=== PATIENT | male | born 1950 | race Caucasian/White ===

== ENCOUNTER 2021-08-14 12:13 | Emergency (ER) | payer MEDICARE, OTHER ==
--- NOTE | 2021-08-14 12:51 | EDM.PDOC ---
ED [facility] GENERAL MEDICAL PROBLEM - General Chief Complaint: Respiratory Problem Stated Complaint: SOB Time Seen by Provider: 08/14/21 12:43 Source of Information: Reports: Patient History Limitations: Reports: No Limitations - History of Present Illness INITIAL COMMENTS - FREE TEXT/NARRATIVE: Patient is a 70-year-old male with a history of obesity presenting with a chief complaint of shortness of breath. Patient states he is been feeling sick for the past 3 weeks. He reports cough, congestion. He is slowly developed shortness of breath over this period of time. Shortness of breath is with exertion and at rest. Does not have any associated chest pain with this. Otherwise, he feels well. He denies any sore throat, vomiting, diarrhea, muscle aches, joint pains. States he otherwise has not had any issues with CHF or COPD. Patient denies smoking. Does not have any sick contacts. - Related Data Allergies Allergy/AdvReac Type Severity Reaction Status Date / Time No Known Allergies Allergy Verified 08/14/21 12:24 Home Meds: Home Meds . [No Known Home Meds] 08/14/21 [History] Past Medical History HEENT History: Reports: Impaired Vision Other HEENT History: wears eyeglasses. Respiratory History: Reports: Bronchitis, Recurrent, Pneumonia, Recurrent - Infectious Disease History Infectious Disease History: Reports: Chicken Pox, Measles, Mumps Social & Family History - Tobacco Use Tobacco Use Status *Q: Never Tobacco User Second Hand Smoke Exposure: No - Caffeine Use Caffeine Use: Reports: Coffee - Recreational Drug Use Recreational Drug Use: No ED ROS GENERAL - Review of Systems Review Of Systems: See Below Free Text/Narrative/Comment: In addition to that documented in the HPI above, the additional ROS was obtained: Constitutional: Denies fevers or chills Eyes: Denies vision changes ENMT: Denies sore throat CV: Denies chest pain Resp: Per HPI GI: Denies vomiting or diarrhea : Denies painful urination MSK: Denies recent trauma Skin: Denies new rashes Neuro: Denies new numbness or tingling or weakness Endocrine: Denies unexpected weight loss Heme: Denies bleeding disorders ED EXAM, GENERAL - Physical Exam Exam: See Below Free Text/Narrative:: I have reviewed the triage vital signs Const: Well nourished, well developed, appears stated age Eyes: Pupils Equal and reactive to light bilaterally, no conjunctival injection HENT: No signs of trauma or swelling, Neck supple without meningismus CV: Regular Rate Rhythm, Warm, well-perfused extremities RESP: Unlabored respiratory effort GI: soft, non-tender, non-distended, no masses MSK: No gross deformities appreciated Skin: Warm, dry. No rashes Neuro: Alert, utility system repairer II-XII grossly intact. Sensation and motor function of extremities grossly intact. Psych: Appropriate mood and affect. #1 Interpretation EKG Date: 08/14/21 Time: 12:59 Rhythm: NSR Rate (Beats/Min): 92 [place]: Normal P-Wave: Present QRS: Normal ST-T: Other (And ST segments and lead III and aVF. Also T wave flattening in V5 and V6) QT: Normal Comparison: NA - No Prior EKG EKG Interpretation Comments: Abnormal EKG Course - Vital Signs Last Recorded V/S: Last Vital Signs Temp 36.3 C 08/14/21 15:03 Pulse 94 08/14/21 15:03 Resp 22 H 08/14/21 15:03 BP 174/92 H 08/14/21 15:03 Pulse Ox 94 L 08/14/21 15:03 - Orders/Labs/Meds Orders: Active Orders 24 hr Category Date Time Status Sodium Chloride 0.9% [Normal Saline] 100 ml Med 08/14/21 14:15 Active IV ASDIRECTED Sodium Chloride 0.9% [Saline Flush] Med 08/14/21 14:12 Active 10 ml FLUSH ONETIME PRN Medication Orders Sodium Chloride (Normal Saline) 100 mls @ 60 mls/hr IV ASDIRECTED MIKE Last Admin: 08/14/21 14:36 Dose: 60 mls/hr Documented by: [id number] Sodium Chloride (Sodium Chloride 0.9% 10 Ml Syringe) 10 ml FLUSH ONETIME PRN PRN Reason: Keep Vein Open Last Admin: 08/14/21 14:36 Dose: 10 ml Documented by: [email or web address] Labs: Laboratory Tests 08/14/21 08/14/21 08/14/21 Range/Units 12:50 12:55 12:55 WBC 7.22 (4.23-9.07) K/mm3 RBC 4.18 L (4.63-6.08) M/mm3 Hgb 12.3 L (13.7-17.5) gm/dl Hct 35.8 L (40.1-51.0) % MCV 85.6 (79.0-92.2) fl MCH 29.4 (25.7-32.2) pg MCHC 34.4 (32.2-35.5) g/dl RDW Std Deviation 41.0 (35.1-43.9) fL Plt Count 265 (163-337) K/mm3 MPV 9.1 L (9.4-12.3) fl Neut % (Auto) 73.9 H (34.0-67.9) % Lymph % (Auto) 13.3 L (21.8-53.1) % Bradley % (Auto) 10.5 (5.3-12.2) % Eos % (Auto) 1.4 (0.8-7.0) Baso % (Auto) 0.1 (0.1-1.2) % Neut # (Auto) 5.33 (1.78-5.38) K/mm3 Lymph # (Auto) 0.96 L (1.32-3.57) K/mm3 Bradley # (Auto) 0.76 (0.30-0.82) K/mm3 Eos # (Auto) 0.10 (0.04-0.54) K/mm3 Baso # (Auto) 0.01 (0.01-0.08) K/mm3 PT 10.6 (9.7-12.0) SECONDS INR 0.95 D-Dimer, Quantitative 1.72 H (0.19-0.50) mg/L Sodium (136-145) mEq/L Potassium (3.5-5.1) mEq/L Chloride (98-107) mEq/L Carbon Dioxide (21-32) mEq/L Anion Gap (5-15) BUN (7-18) mg/dL Creatinine (0.7-1.3) mg/dL Est Cr Clr Drug Dosing mL/min Estimated GFR (MDRD) (>60) mL/min BUN/Creatinine Ratio (14-18) Glucose (70-99) mg/dL Calcium (8.5-10.1) mg/dL Total Bilirubin (0.2-1.0) mg/dL AST (15-37) U/L ALT (16-63) U/L Alkaline Phosphatase (46-116) U/L Troponin I (0.00-0.056) ng/mL NT-Pro-B Natriuret Pep (0-125) pg/mL Total Protein (6.4-8.2) g/dl Albumin (3.4-5.0) g/dl Globulin gm/dL Albumin/Globulin Ratio (1-2) Influenza Type A RNA Negative (NEGATIVE) RSV RNA (INAAT) Negative (NEGATIVE) Influenza Type B RNA Negative (NEGATIVE) SARS-CoV-2 RNA (MIGUEL ANGEL) Positive H (NEGATIVE) 08/14/21 08/14/21 Range/Units 12:55 12:55 WBC (4.23-9.07) K/mm3 RBC (4.63-6.08) M/mm3 Hgb (13.7-17.5) gm/dl Hct (40.1-51.0) % MCV (79.0-92.2) fl MCH (25.7-32.2) pg MCHC (32.2-35.5) g/dl RDW Std Deviation (35.1-43.9) fL Plt Count (163-337) K/mm3 MPV (9.4-12.3) fl Neut % (Auto) (34.0-67.9) % Lymph % (Auto) (21.8-53.1) % Bradley % (Auto) (5.3-12.2) % Eos % (Auto) (0.8-7.0) Baso % (Auto) (0.1-1.2) % Neut # (Auto) (1.78-5.38) K/mm3 Lymph # (Auto) (1.32-3.57) K/mm3 Bradley # (Auto) (0.30-0.82) K/mm3 Eos # (Auto) (0.04-0.54) K/mm3 Baso # (Auto) (0.01-0.08) K/mm3 PT (9.7-12.0) SECONDS INR D-Dimer, Quantitative (0.19-0.50) mg/L Sodium 144 (136-145) mEq/L Potassium 3.8 (3.5-5.1) mEq/L Chloride 105 (98-107) mEq/L Carbon Dioxide 30 (21-32) mEq/L Anion Gap 12.8 (5-15) BUN 15 (7-18) mg/dL Creatinine 0.8 (0.7-1.3) mg/dL Est Cr Clr Drug Dosing 76.43 mL/min Estimated GFR (MDRD) > 60 (>60) mL/min BUN/Creatinine Ratio 18.8 H (14-18) Glucose 209 H (70-99) mg/dL Calcium 8.4 L (8.5-10.1) mg/dL Total Bilirubin 0.5 (0.2-1.0) mg/dL AST 90 H (15-37) U/L ALT 140 H (16-63) U/L Alkaline Phosphatase 161 H (46-116) U/L Troponin I < 0.017 (0.00-0.056) ng/mL NT-Pro-B Natriuret Pep 770 H (0-125) pg/mL Total Protein 7.0 (6.4-8.2) g/dl Albumin 2.6 L (3.4-5.0) g/dl Globulin 4.4 gm/dL Albumin/Globulin Ratio 0.6 L (1-2) Influenza Type A RNA (NEGATIVE) RSV RNA (INAAT) (NEGATIVE) Influenza Type B RNA (NEGATIVE) SARS-CoV-2 RNA (MIGUEL ANGEL) (NEGATIVE) Meds: Medications Generic Name Dose Route Start Last Admin Trade Name Freq PRN Reason Stop Dose Admin Sodium Chloride 100 mls @ 60 mls/hr 08/14/21 14:15 08/14/21 14:36 Normal Saline IV 60 mls/hr ASDIRECTED MIKE Administration Sodium Chloride 10 ml 08/14/21 14:12 08/14/21 14:36 Sodium Chloride 0.9% 10 Ml Syringe FLUSH 10 ml ONETIME PRN Administration Keep Vein Open Discontinued Medications Generic Name Dose Route Start Last Admin Trade Name Freq PRN Reason Stop Dose Admin Iopamidol 100 ml 08/14/21 14:12 08/14/21 14:36 Iopamidol 755 Mg/Ml 100 Ml Bottle IVPUSH 08/14/21 14:13 100 ml ONETIME ONE Administration Departure - Departure Time of Disposition: 15:41 Disposition: Home, Self-Care 01 Clinical Impression: Pneumonia due to COVID-19 virus, Pulmonary artery hypertension - Discharge Information Instructions: COVID-19, Pulmonary Hypertension Referrals: PCP,None [Primary Care Provider] - Forms: ED Department Discharge Additional Instructions: Please follow-up with your primary care physician in the next 1 week. Have evidence of pulmonary artery hypertension and this will require further work-up. Please quarantine for the next 5 days. Return to the emergency room for worsening of breathing or any other emergent concerns. Sepsis Event Note (ED) - Evaluation Sepsis Screening Result: No Definite Risk - Focused Exam Vital Signs: Vital Signs Temp Pulse Resp BP Pulse Ox 08/14/21 15:03 36.3 C 94 22 H 174/92 H 94 L 08/14/21 12:25 36.0 C L 95 18 160/95 H 95 - My Orders Last 24 Hours: My Active Orders 08/14/21 14:12 Sodium Chloride 0.9% [Saline Flush] 10 ml FLUSH ONETIME PRN 08/14/21 14:15 Sodium Chloride 0.9% [Normal Saline] 100 ml IV ASDIRECTED - Assessment/Plan Last 24 Hours: My Active Orders 08/14/21 14:12 Sodium Chloride 0.9% [Saline Flush] 10 ml FLUSH ONETIME PRN 08/14/21 14:15 Sodium Chloride 0.9% [Normal Saline] 100 ml IV ASDIRECTED Assessment:: Patient 70-year-old male presents emergency room with a chief complaint of shortness of breath. Patient not hypoxic or in respiratory distress on arrival or throughout emergency department stay. Differential diagnosis considered for this patient include COVID-pneumonia, bacterial pneumonia, heart failure, ACS. Work-up in the emergency room included imaging, EKG and laboratory studies. His EKG demonstrates evidence of right heart strain. Active evidence of ischemia on EKG. His laboratory studies demonstrate evidence of positive COVID-19 teen testing as well as elevated D-dimer. Otherwise, no evidence of leukocytosis or other significant abnormality. Troponin negative. Patient underwent CT scan which demonstrates evidence of COVID-pneumonia as well as concerns for chronic pulmonary artery hypertension. At this point, patient is candidate for outpatient evaluation of pulmonary artery hypertension. Given duration of symptoms, he is not eligible for any other COVID-19 treatments. I will recommend further quarantine and PCP follow-up. Return precaution discussed usual. Patient agrees with plan.
[2021-08-14] MEDS ORDERED: Sodium Chloride 0.9% 10 ML Syringe FLUSH PRN (14:12)
[2021-08-14] MEDS ORDERED: Iopamidol 755 Mg/ML 100 ML Bottle IVPUSH ONE (14:12)
[2021-08-14 14:15] LABS: CORONAVIRUS COVID-19 NAA POSITIVE (NEGATIVE)
[2021-08-14] MEDS ORDERED: Sodium Chloride 0.9% 100 ML IV SCH (14:15)
--- NOTE | 2021-08-14 14:25 | CR ---
EXAM: XR CHEST 1 VIEW LOCATION: [facility] DATE/TIME: 08/14/2021 12:53 PM INDICATION: Dyspnea COMPARISON: None. IMPRESSION: Heart and mediastinal size normal. There is patchy bilateral airspace opacity primarily in a peripheral distribution, suggestive of COVID pneumonia. No pleural effusion or pneumothorax. SIGNED BY: Fernando Gaspar MD 08/14/2021 1:58 PM [email or web address]
--- NOTE | 2021-08-14 15:15 | CT ---
EXAM: CT ANGIO CHEST LOCATION: [facility] DATE/TIME: 08/14/2021 2:07 PM INDICATION: Shortness of breath, elevated d-dimer COMPARISON: Today's 1:00 PM CXR 08/14/2021 TECHNIQUE: CT chest pulmonary angiogram during arterial phase injection of IV contrast. Multiplanar reformats and MIP reconstructions were performed. Dose reduction techniques were used. CONTRAST: Isovue 370 100 mL FINDINGS: ANGIOGRAM CHEST: No pulmonary emboli with the caveat that distal subsegmental pulmonary arteries in the basilar segments of both lower lobes are not well visualized due to some motion artifact. Mild enlargement central pulmonary arteries (main pulmonary artery diameter 3.7 cm). Normal thoracic aorta. LUNGS AND PLEURA: Multifocal consolidative and groundglass density airspace opacity in a peripheral and perihilar bronchovascular distribution compatible with Covid 19 pneumonia in the proper clinical setting with minimal upper lung involvement, 25% mid lung involvement and 25-50% lower lung involvement. Diffuse bronchial wall thickening consistent with some degree of bronchial inflammation/edema. Mosaic attenuation pattern in the lower lungs consistent with multifocal air trapping. MEDIASTINUM/AXILLAE: Mild mediastinal and hilar lymph node enlargement most likely reactive. Heart size normal with no pericardial effusion. Dense aortic valve leaflet calcification and thickening. CORONARY ARTERY CALCIFICATION: Moderate. UPPER ABDOMEN: A 1.9 x 1.2 cm right adrenal gland nodule most likely represents a benign adenoma. MUSCULOSKELETAL: Normal. IMPRESSION: 1. No pulmonary emboli. 2. Mild enlargement central pulmonary arteries could indicate some degree of chronic pulmonary arterial hypertension. 3. Dense calcification and thickening of the aortic valve leaflets. Indicate underlying aortic stenosis. 4. Lung findings compatible with Covid 19 pneumonia in the proper clinical setting (influenza pneumonia and organizing pneumonia in the setting of drug toxicity and connective tissue disease can cause a similar imaging pattern) with minimal upper lung involvement, 25% mid lung involvement and 25- 50% lower lung involvement. 5. CT findings of probable bronchial inflammation/edema and multifocal air trapping. 6. Mild mediastinal and hilar lymph node enlargement most likely reactive. Recommend follow-up CT chest in 6 months to ensure resolution. 7. A 1.9 x 1.2 cm right adrenal gland nodule most likely represents a benign adenoma. This could be confirmed with noncontrast CT chest in 6 months. SIGNED BY: Scott Carpio MD 08/14/2021 4:11 PM SACHI
== END 2021-08-14 16:25 | disposition home or self-care (01) ==
LOC: JD.ED 12:13
DX: U07.1 COVID-19 (principal); J12.82 Pneumonia due to coronavirus disease 2019; I27.20 Pulmonary hypertension, unspecified
CPT/HCPCS: 0241U; 36415; 71045; 71275; 80053; 83880; 84484; 85025; 85379; 85610; 93005; 99285; Q9967